=== PATIENT | female | born 1995 | race Caucasian/White ===

== ENCOUNTER 2019-05-25 09:51 | Emergency (ER) | payer MEDICAID, OTHER ==
[~2019-05-25] VITALS: Ht 172.7 cm; Wt 109.9 kg
[2019-05-25 09:58] VITALS: BP 140/92
[2019-05-25] MEDS ORDERED: PRED20TA PO (11:40)
[2019-05-25] MEDS ORDERED: HYDR28CR14 TOP (11:40)
== END 2019-05-25 11:58 | disposition home or self-care (01) ==
LOC: ER 09:53
DX: L23.9 Allergic contact dermatitis, unspecified cause (principal); Z79.899 Other long term (current) drug therapy
CPT/HCPCS: 99283